=== PATIENT | female | born 1990 | race Caucasian/White ===

== ENCOUNTER 2018-03-09 19:41 | Emergency (ER) | payer BC ==
[~2018-03-09] VITALS: Ht 152.4 cm; Wt 56.2 kg
[2018-03-09 20:15] VITALS: Ht 152.4 cm; Wt 56.2 kg
[2018-03-09 22:27] VITALS: BP 121/78
== END 2018-03-09 22:27 | disposition home or self-care (01) ==
LOC: ED 19:41
DX: R07.89 Other chest pain (principal); R00.2 Palpitations; R06.02 Shortness of breath; E05.90 Thyrotoxicosis, unspecified without thyrotoxic crisis or storm